=== PATIENT | female | born 1975 | race American Indian/Alaskan Native ===

== ENCOUNTER 2018-04-22 08:01 | Emergency (ER) | payer MEDICAID ==
[~2018-04-22] VITALS: Ht 578.2 cm; Wt 95.5 kg
[~2018-04-22 08:01] MED LIST: CLIN300C85 PO; DIPH-423 PO; NO HOME MEDS; PRED50TA PO; TRAM50TA2 PO
[2018-04-22 08:03] VITALS: BP 122/80
[2018-04-22] MEDS ORDERED: MUPI22OI30 TOP (08:24)
[2018-04-22] MEDS ORDERED: BACDS PO (08:24)
== END 2018-04-22 08:36 | disposition home or self-care (01) ==
LOC: ER 08:01
DX: L02.31 Cutaneous abscess of buttock (principal); F12.90 Cannabis use, unspecified, uncomplicated; Z86.14 Personal history of Methicillin resistant Staphylococcus aureus infection; Z79.899 Other long term (current) drug therapy
CPT/HCPCS: 99283

== ENCOUNTER 2018-07-11 16:36 | Emergency (ER) | payer MEDICAID ==
[~2018-07-11] VITALS: Ht 167.6 cm; Wt 86.4 kg
[2018-07-11 16:56] VITALS: BP 142/99
[2018-07-11] MEDS ORDERED: BACDS PO (17:04)
== END 2018-07-11 17:09 | disposition home or self-care (01) ==
LOC: ER 16:37
DX: L73.9 Follicular disorder, unspecified (principal); Z86.14 Personal history of Methicillin resistant Staphylococcus aureus infection; F12.90 Cannabis use, unspecified, uncomplicated; Z79.2 Long term (current) use of antibiotics; Z79.899 Other long term (current) drug therapy
CPT/HCPCS: 99283

== ENCOUNTER 2019-02-10 11:00 | Emergency (ER) | payer MEDICAID ==
[~2019-02-10] VITALS: Ht 167.6 cm; Wt 100.0 kg
[~2019-02-10 11:00] MED LIST changes: +CLIN-96 PO; -CLIN300C85 PO
[2019-02-10 11:08] VITALS: BP 150/95
== END 2019-02-10 12:50 | disposition home or self-care (01) ==
LOC: ER 11:00
DX: S93.491A Sprain of other ligament of right ankle, initial encounter (principal); Z86.14 Personal history of Methicillin resistant Staphylococcus aureus infection; Z98.51 Tubal ligation status; Z79.899 Other long term (current) drug therapy; X50.1XXA Overexertion from prolonged static or awkward postures, initial encounter; Y93.89 Activity, other specified; Y92.89 Other specified places as the place of occurrence of the external cause; Y99.8 Other external cause status
CPT/HCPCS: 73630; 99283

== ENCOUNTER 2020-12-13 11:23 | Emergency (ER) | payer MEDICAID ==
[~2020-12-13] VITALS: Ht 167.6 cm; Wt 86.4 kg
[~2020-12-13 11:23] MED LIST changes: -CLIN-96 PO; +CLIN-97 PO
[2020-12-13 12:08] VITALS: BP 134/89
[2020-12-13] MEDS ORDERED: IBUP-1984 PO (14:29)
== END 2020-12-13 14:44 | disposition home or self-care (01) ==
LOC: ER 11:24
DX: M25.571 Pain in right ankle and joints of right foot (principal); F12.90 Cannabis use, unspecified, uncomplicated; Z86.14 Personal history of Methicillin resistant Staphylococcus aureus infection; Z98.51 Tubal ligation status; Z79.899 Other long term (current) drug therapy
CPT/HCPCS: 29540; 73610; 99283

== ENCOUNTER 2021-06-12 10:39 | Emergency (ER) | payer MEDICAID ==
[~2021-06-12] VITALS: Ht 167.6 cm; Wt 82.0 kg
[2021-06-12 10:56] VITALS: BP 117/73
== END 2021-06-12 23:28 | disposition left against medical advice (07) ==
LOC: ER 10:39
DX: R07.89 Other chest pain (principal); F12.90 Cannabis use, unspecified, uncomplicated; Z53.21 Procedure and treatment not carried out due to patient leaving prior to being seen by health care provider; Z98.51 Tubal ligation status; Z79.2 Long term (current) use of antibiotics; Z79.899 Other long term (current) drug therapy
CPT/HCPCS: 93005